=== PATIENT | female | born 1960 | race African-American/Black ===

== ENCOUNTER 2016-11-19 11:42 | Emergency (ER) | payer OTHER ==
[~2016-11-19] VITALS: Ht 162.6 cm; Wt 86.0 kg
[~2016-11-19 11:42] MED LIST: AMLO-512 PO; ASPI-556 PO; ATOR10TA84 PO; BENA20 PO; CLOP75 PO; HYDR-308 PO; HYDR25TA PO; METF10002 PO
[2016-11-19] MEDS ORDERED: GLIP5TAB11 PO (11:55)
[2016-11-19] MEDS ORDERED: CARV3.1231 PO (11:55)
[2016-11-19] MEDS ORDERED: LOSA25TA21 PO ×2 (11:55)
[2016-11-19 11:58] LABS: GLUCOSE,POINT OF CARE 151 MG/DL (70-110)
[2016-11-19] MEDS ORDERED: KETOROLAC TROMETHAMINE 30 MG/ML VIAL IM ONE (15:30)
[2016-11-19] MEDS ORDERED: ACETAMINOPHEN 500 MG TABLET PO ONE (15:45)
[2016-11-19 16:09] VITALS: BP 132/78
== END 2016-11-19 16:16 | disposition home or self-care (01) ==
LOC: EMS 11:43
DX: M17.11 Unilateral primary osteoarthritis, right knee (principal); M25.561 Pain in right knee; I11.0 Hypertensive heart disease with heart failure; I50.9 Heart failure, unspecified; K21.9 Gastro-esophageal reflux disease without esophagitis; E78.00 Pure hypercholesterolemia, unspecified; E11.9 Type 2 diabetes mellitus without complications; Z79.82 Long term (current) use of aspirin
CPT/HCPCS: 82962; 99284

== ENCOUNTER 2017-09-11 08:01 | Day surgery (SDC) | payer OTHER ==
[~2017-09-11] VITALS: Ht 162.6 cm; Wt 92.3 kg
[~2017-09-11 08:01] MED LIST changes: -AMLO-512 PO; -BENA20 PO; +CARV3.1231 PO; -CLOP75 PO; +GLIP5TAB11 PO; -HYDR-308 PO; +LOSA25TA21 PO; -METF10002 PO; +SODIUM CHLORIDE 0.9% 1,000 ML IV ONE
[2017-09-11] MEDS ORDERED: SODIUM CHLORIDE 0.9% 1,000 ML IV ONE (08:03)
[2017-09-11 09:04] LABS: BASOPHILS % (AUTO) 0.7 % (0.0-2.0); EOSINOPHILS % (AUTO) 4.9 % (1.0-6.0); HEMATOCRIT 37.1 % (36-46); HEMOGLOBIN 12.1 g/dL (12.0-16.0); LYMPHOCYTES # (AUTO) 2.5 K/uL (1.0-4.8); LYMPHOCYTES % (AUTO) 28.5 % (22.0-44.0); MEAN CORPUSCULAR HEMOGLOBIN 21.3 pg (26.0-34.0); MEAN CORPUSCULAR HGB CONC 32.5 G/dL (31.0-37.0); MEAN CORPUSCULAR VOLUME 65 fL (80-100); MONOCYTES # (AUTO) 0.5 K/uL (0.1-1.0); MONOCYTES % (AUTO) 5.5 % (2.0-9.0); NEUTROPHILS # (AUTO) 5.4 K/uL (1.8-7.7); NEUTROPHILS % (AUTO) 60.4 % (40.0-70.0); PLATELET COUNT (AUTO) 245 K/uL (150-450); RED BLOOD CELL COUNT(AUTO) 5.67 MIL/uL (4.00-5.20)
[2017-09-11 09:18] LABS: CALCIUM, TOTAL 9.7 mg/dL (8.8-10.5); CREATININE 1.2 mg/dL (0.60-1.30)
[2017-09-11 09:25] LABS: ALBUMIN 3.2 g/dL (3.4-5.0); BILIRUBIN,TOTAL 0.6 mg/dL (0.1-1.0); TOTAL PROTEIN, SERUM 7.1 g/dL (6.4-8.2)
[2017-09-11] MEDS ORDERED: FentaNYL CITRATE-PF 100 MCG/2 ML VIAL ONE (09:38)
[2017-09-11] MEDS ORDERED: GELATIN SPONGE,ABSORBABLE 12-7 MM TP ONE (09:38)
[2017-09-11] MEDS ORDERED: MIDAZOLAM HCL 2 MG/2 ML VIAL ONE (09:38)
[2017-09-11] MEDS ORDERED: LIDOCAINE HCL/PF 1% 30 ML VIAL ONE (09:38)
[2017-09-11] MEDS ORDERED: LABETALOL HCL 5 MG/ML 20 ML VIAL IVP ONE ×2 (10:27→10:29)
[2017-09-11] MEDS ORDERED: FentaNYL CITRATE-PF 100 MCG/2 ML VIAL IVP ONE (10:33)
[2017-09-11] MEDS ORDERED: MIDAZOLAM HCL 2 MG/2 ML VIAL IVP ONE (10:33)
[2017-09-11 11:44] VITALS: BP 185/113
== END 2017-09-11 14:00 | disposition home or self-care (01) ==
LOC: SURGERY 08:01 → EDSTATUS 10:00 → SURGERY 14:00
PROVIDERS: ATTEND Internal Medicine Nephrology
DX: R80.9 Proteinuria, unspecified (principal); I10 Essential (primary) hypertension; M17.0 Bilateral primary osteoarthritis of knee; I25.10 Atherosclerotic heart disease of native coronary artery without angina pectoris; Z79.82 Long term (current) use of aspirin; E11.21 Type 2 diabetes mellitus with diabetic nephropathy; Z79.899 Other long term (current) drug therapy
CPT/HCPCS: 36415; 50200; 77012; 80053; 85025; 85610; 85730; 88300; 93005; J2250; J3010; J3490 ×2; J7030